=== PATIENT | male | born 1975 | race Caucasian/White ===

== ENCOUNTER → 2020-05-04 06:52 | Outpatient (CLI) | payer BC, SELFPAY ==
[2020-05-04 20:53] LABS: SARS-CoV-2 RNA PCR Positive
== END ==
PROVIDERS: PCP Family Medicine; Visit Provider Family Medicine
DX: U07.1 COVID-19 (principal)
CPT/HCPCS: C9803; U0003; U0005

== ENCOUNTER 2024-05-07 01:54 | Day surgery (SDC) | payer BC, SELFPAY ==
[2024-04-21 10:00] VITALS: BMI 36.3
--- OUTSIDE RECORDS SUMMARY | 2024-05-07 02:00 | XMS_ITS | Data Portability ---
Author Organization [facility] [employer], Main Office Address [address] [place] [address] Care Team Providers Care Network Systems Operator Name Role Phone ESTEPHANIA DEVI Primary Care Provider [phone] Assessment No assessment recorded. Plan of Treatment Reminders Order Date Submit Date Provider Last Modified By Organization Details Last Modified Time Details Appointments Any 2024 03:30P M Selma Ramsay NP Not available Not available Not available Any 2024 03:30P M Estephania Devi APRN Not available Not available Not available Lab hepatitis C virus Ab, serum 2024 025 [facility] (Lab), [address] [place], [address], 04/16/2024 08:08:18 lipid panel, serum 2024 025 [facility] (Lab), [address] [place], [address], 04/16/2024 08:08:17 TSH, serum or plasma 2024 025 [facility] (Lab), [address] [place], [address], 04/16/2024 08:08:17 CBC w/ auto diff 2024 025 [facility] (Lab), [address] [place], [address], 04/16/2024 08:08:17 CMP, serum or plasma 2024 025 [facility] (Lab), [address] [place], [address], 04/16/2024 08:08:18 glycohemo globin, total, blood 2024 025 [facility] (Lab), [address] [place], [address], 04/16/2024 08:08:18 PSA, total, serum or plasma 2023 024 [email or web address] [id number] Not available 07/29/2023 08:18:24 BMP, serum or plasma 2023 024 77 Not available 07/29/2023 08:18:24 hepatic function panel, serum 2023 024 [email or web address] 77 Not available 07/29/2023 08:18:24 lipid panel, serum 2023 024 [email or web address] 77 Not available 07/29/2023 08:18:24 urinalysi s, dipstick 2022 023 [facility] [address], [place], [address], 06/25/2022 16:50:09 urinalysi s, complete [email or web address] [facility] (Lab), [address] [place], [address], 07/11/2022 08:38:31 drug screen, urine 2022 023 [email or web address], [address] [place], [address], 06/25/2022 16:48:00 Referral pulmonolo gist referral 2024 025 Selma Ramsay FLEET MANAGER/DISPATCH-C, [address], [address], [place], [address], 04/07/2024 12:43:20 gastroent erologist referral - Please call patient to schedule an appointme nt. Thank you. [address] [facility], [address], [address], [place], [address], 07/21/2023 08:55:43 Procedures None recorded. Surgeries None recorded. Imaging None recorded. Medication Orders temazepam 30 mg capsule 2024 025 [facility]/Pharmacy #[id number], [address], [place], [address], 04/06/2024 16:37:58 temazepam 30 mg capsule 2023 024 [facility]/Pharmacy #[id number], [address], [place], [address], 06/17/2023 16:58:43 temazepam 30 mg capsule 2022 023 [facility]/Pharmacy #[id number], [address], [place], [address], 06/25/2022 16:26:27 tamsulosi n 0.4 mg capsule 2022 023 [id number], [address], [place], [address], 06/17/2023 16:40:36 ciproflox acin 500 mg tablet [address]/Pharmacy #[id number], [address], [place], [address], 06/17/2023 16:40:17 Patient TargetsNo targets recorded. Patient Instructions Encounter Date Encounter Id Patient Instructions Last Modified By Organization Details Last Modified Time 04/06/2024 [id number] Follow up in 6 months Prescription sent to pharmacy Obtain labs Tests: Referral: Selma Ramsay-Pulmonary DESIGN LEADER Recommend: Tetanus vaccine [email or web address] Not available 04/06/2024 16:35:24 Reason for Referral Molasses Preparer Referral for Screening for malignant neoplasm of colon Please call patient to schedule an appointment. Thank you. Referring Physician: Anna Clayton, Family Medicine, Encounter Date: 06/17/2023 Headmaster/Mistress Referral for O bstructive sleep apnea syndrome Referring Physician: Estephania Devi, Internal Medicine, Encounter Date: 04/06/2024 Results Created Date Observation Date Name Description Value Unit Range Abnormal Flag Note LastModifiedBy Organization Detail LastModifiedTime 10/26/19 22 10/25/2021 TSH thyroid-stim ulating hormone 2.110 uIU/m L 0.465- 4.[address] [facility] (Lab) [address] [place], [address], 10/25/2021 20:53:26 10/26/19 22 10/25/2021 PSA SCREE N PSA medicare screen 0.82 NG/mL 0.00-[address] [facility] (Lab) [address] [place], [address], 10/25/2021 20:53:25 10/26/19 22 10/25/2021 HEMOG LOBIN A1C HA1C 5.4 % 4.0-6. 0 Diabe ariel Scree tony Crite luis: <5.7% Consi stent with absen ce of diabe ariel 5.7-6 .4% Consi stent with incre ased risk for diabe ariel (pred iabet es) >OR=6 .5% Consi stent with diabe ariel REFER ENCE: Diabe ariel Care 2016, 39(Rios ppl.1 ):s13 -s22 Not [address] [facility] (Lab) [address] [place], [address], 10/25/2021 20:49:46 10/26/19 22 10/25/2021 COMPR EHENS LILIANA METAB OLIC PANEL sodium 140 mmol/ L 137-[address] [facility] (Lab) [address] [place], [address], 10/25/2021 20:27:16 10/26/19 22 10/25/2021 COMPR EHENS LILIANA METAB OLIC PANEL potassium 4.7 mmol/ L 3.5-5. [address] [facility] (Lab) [address] [place], [address], 10/25/2021 20:27:16 10/26/19 22 10/25/2021 COMPR EHENS LILIANA METAB OLIC PANEL chloride 104 mmol/ L 98-[address] [facility] (Lab) [address] [place], [address], 10/25/2021 20:27:16 10/26/19 22 10/25/2021 COMPR EHENS LILIANA METAB OLIC PANEL carbon dioxide 27 mmol/ L 22-30 Not Available [facility] (Lab) [address] [place], [address], 10/25/2021 20:27:16 10/26/19 22 10/25/2021 COMPR EHENS LILIANA METAB OLIC PANEL anion gap 13.7 mmol/ L 14-[address] [facility] (Lab) [address] [place], [address], 10/25/2021 20:27:16 10/26/19 22 10/25/2021 COMPR EHENS LILIANA METAB OLIC PANEL glucose 97 mg/dL 70-[address] [facility] (Lab) [address] [place], [address], 10/25/2021 20:27:16 10/26/19 22 10/25/2021 COMPR EHENS LILIANA METAB OLIC PANEL BUN 17 mg/dL 8-[address] [facility] (Lab) [address] [place], [address], 10/25/2021 20:27:16 10/26/19 22 10/25/2021 COMPR EHENS LILIANA METAB OLIC PANEL creatinine 1.08 mg/dL 0.66-[address] [facility] (Lab) [address] [place], [address], 10/25/2021 20:27:16 10/26/19 22 10/25/2021 COMPR EHENS LILIANA METAB OLIC PANEL GFR >60 Refer ence Range : [place] ge GFR Healt hy Adult : >60 mL/mi n/1.7 3 m2 Chron ic Kidne y Disea se: 15-60 mL/mi n/1.7 3 m2 Kidne y Failu re: <15/m L/min /1.73 m2 www.n iddk. nih.g ov The MDRD study equat ion has not been valid ated in child rajesh <18 years of age; pregn ant women ; the elder ly >85 years of age; or in some racia l or ethni c subgr oups, such as Hisid nics. Outsi de the valid ated santiago eters , estim ated GFR is less accur ate, requi ring clini alvina judgm ent on a case- by-ca se basis . Clini alvina inter preta tion for other races and ages must be made by the clini jose. The MDRD study equat ion has not been valid ated for the evalu ation of serum creat inine relat ed to nutri lon l statu s or medic ation usage . For perso ns <18 years of age, a pedia tric GFR calcu lator is avail able on the F websi te: https ://keegan w.kid jordan.o rg/pr vinodess ional s/kdo qi/gf r_cal culat or Not Available [facility] (Lab) [address] [place], [address], 10/25/2021 20:27:16 10/26/19 22 10/25/2021 COMPR EHENS LILIANA METAB OLIC PANEL alkaline phosphatase 70 U/L 38-126 Not Available [facility] (Lab) [address] [place], [address], 10/25/2021 20:27:16 10/26/19 22 10/25/2021 COMPR EHENS LILIANA METAB OLIC PANEL alanine aminotransfe rase 35 U/L 0-50 Not Available [facility] (Lab) [address] [place], [address], 10/25/2021 20:27:16 10/26/19 22 10/25/2021 COMPR EHENS LILIANA METAB OLIC PANEL aspartate aminotransfe rase 34 U/L 15-46 Not Available [facility] (Lab) [address] [place], [address], 10/25/2021 20:27:16 10/26/19 22 10/25/2021 COMPR EHENS LILIANA METAB OLIC PANEL bilirubin, total 0.50 mg/dL 0.20-[address] [facility] (Lab) [address] [place], [address], 10/25/2021 20:27:16 10/26/19 22 10/25/2021 COMPR EHENS LILIANA METAB OLIC PANEL calcium 9.8 mg/dL 8.4-[address] [facility] (Lab) [address] [place], [address], 10/25/2021 20:27:16 10/26/19 22 10/25/2021 COMPR EHENS LILIANA METAB OLIC PANEL total protein 7.4 g/dL 6.3-8. [address] [facility] (Lab) [address] [place], [address], 10/25/2021 20:27:16 10/26/19 22 10/25/2021 COMPR EHENS LILIANA METAB OLIC PANEL albumin 4.6 g/dL 3.4-5. [address] [facility] (Lab) [address] [place], [address], 10/25/2021 20:27:16 10/26/19 22 10/25/2021 COMPR EHENS LILIANA METAB OLIC PANEL globulin 2.8 g/dL 2.6-4. [address] [facility] (Lab) [address] [place], [address], 10/25/2021 20:27:16 10/26/19 22 10/25/2021 COMPR EHENS LILIANA METAB OLIC PANEL A/G ratio 1.6 ratio 1.0-2. [address] [facility] (Lab) [address] [place], [address], 10/25/2021 20:27:16 10/26/19 22 10/25/2021 LIPID PANEL cholesterol 192 mg/dL 140-19 9 NIH NATALIA NSUS RECOM MENDA TION FOR TAWANDA STERO L: ADULT CHILD LOW RISK: <200 <170 BORDE RLINE : <200- 239 ----- HIGH RISK: >240 >[address] [facility] (Lab) [address] [place], [address], 10/25/2021 20:27:09 10/26/19 22 10/25/2021 LIPID PANEL triglyceride s 154 mg/dL 0-150 high NIH NATALIA NSUS REPOR T RECOM MENDA TION FOR TRIGL YCERI ALEXUS: ADULT CHILD LOW RISK: <150 ----- BODER LINE: 150-1 99 ----- HIGH RISK: >200 ----- Not Available [facility] (Lab) [address] [place], [address], 10/25/2021 20:27:09 10/26/19 22 10/25/2021 LIPID PANEL HDL cholesterol 48 mg/dL 40- Not Available [facility] (Lab) [address] [place], [address], 10/25/2021 20:27:09 10/26/19 22 10/25/2021 LIPID PANEL LDL cholesterol, calculated 113 mg/dL 0-130 NIH NATALIA NSUS REPOR T RECOM MENDA TIONS FOR LDL: ADULT CHILD LOW RISK <130 <110 (OPTI MAL LDL) <100 ----- BORDE RLINE : 130-1 59 ----- HIGH RISK: >160 >130 A TRIGL YCERI DE RESUL T >400 INVAL IDATE S THE CALCU LATIO N FOR LDL FRACT IONAT ION - THE LDL RESUL T WILL NOT BE REPOR KELLIE. Not Available [facility] (Lab) [address] [place], [address], 10/25/2021 20:27:09 10/26/19 22 10/25/2021 URINA LYSIS COMPL ETE, IRIS color light- yellow Not Available [facility] (Lab) [address] [place], [address], 10/25/2021 19:47:31 10/26/19 22 10/25/2021 URINA LYSIS COMPL ETE, IRIS appear clear Not Available [facility] (Lab) [address] [place], [address], 10/25/2021 19:47:31 10/26/19 22 10/25/2021 URINA LYSIS COMPL ETE, IRIS specific gravity 1.023 1.001- 1.[address] [facility] (Lab) [address] [place], [address], 10/25/2021 19:47:31 10/26/19 22 10/25/2021 URINA LYSIS COMPL ETE, IRIS pH 6.0 pH_un its 5.0-9. [address] [facility] (Lab) [address] [place], [address], 10/25/2021 19:47:31 10/26/19 22 10/25/2021 URINA LYSIS COMPL ETE, IRIS leukocytes negati ve jessica/u L negati ve- Not Available [facility] (Lab) [address] [place], [address], 10/25/2021 19:47:31 10/26/19 22 10/25/2021 URINA LYSIS COMPL ETE, IRIS nitrite negati ve negati ve- Not Available [facility] (Lab) [address] [place], [address], 10/25/2021 19:47:31 10/26/19 22 10/25/2021 URINA LYSIS COMPL ETE, IRIS protein negati ve mg/dL negati ve- Not Available [facility] (Lab) [address] [place], [address], 10/25/2021 19:47:31 10/26/19 22 10/25/2021 URINA LYSIS COMPL ETE, IRIS glucose normal mg/dL normal - Not Available [facility] (Lab) [address] [place], [address], 10/25/2021 19:47:31 10/26/19 22 10/25/2021 URINA LYSIS COMPL ETE, IRIS ketones negati ve mg/dL negati ve- Not Available [facility] (Lab) [address] [place], [address], 10/25/2021 19:47:31 10/26/19 22 10/25/2021 URINA LYSIS COMPL ETE, IRIS urobilinogen normal mg/dL normal - Not Available [facility] (Lab) [address] [place], [address], 10/25/2021 19:47:31 10/26/19 22 10/25/2021 URINA LYSIS COMPL ETE, IRIS bilirubin negati ve mg/dL negati ve- Not Available [facility] (Lab) [address] [place], [address], 10/25/2021 19:47:31 10/26/19 22 10/25/2021 URINA LYSIS COMPL ETE, IRIS blood negati ve mg/dL negati ve- Not Available [facility] (Lab) [address] [place], [address], 10/25/2021 19:47:31 10/26/19 22 10/25/2021 URINA LYSIS COMPL ETE, IRIS white blood cells 0-8 /i??h pfi?? 0-[address] [facility] (Lab) [address] [place], [address], 10/25/2021 19:47:31 10/26/19 22 10/25/2021 URINA LYSIS COMPL ETE, IRIS red blood cells 0-4 /i??h pfi?? 0-[address] [facility] (Lab) [address] [place], [address], 10/25/2021 19:47:31 10/26/19 22 10/25/2021 URINA LYSIS COMPL ETE, IRIS bacteria occasi onal abnormal Not Available [facility] (Lab) [address] [place], [address], 10/25/2021 19:47:31 10/26/19 22 10/25/2021 URINA LYSIS COMPL ETE, IRIS mucous occasi onal /i??l pfi?? abnormal Not Available [facility] (Lab) [address] [place], [address], 10/25/2021 19:47:31 10/26/19 22 10/25/2021 URINA LYSIS COMPL ETE, IRIS squamous epithelial none /i??l pfi?? abnormal Not Available [facility] (Lab) [address] [place], [address], 10/25/2021 19:47:31 10/26/19 22 10/25/2021 CBC W/O DIFFE RENTI AL white blood cells 8.4 x10'3 /uL 4.2-[address] [facility] (Lab) [address] [place], [address], 10/25/2021 19:41:47 10/26/19 22 10/25/2021 CBC W/O DIFFE RENTI AL red blood cells 5.40 x10'6 /uL 4.10-[address] [facility] (Lab) [address] [place], [address], 10/25/2021 19:41:47 10/26/19 22 10/25/2021 CBC W/O DIFFE RENTI AL hemoglobin 15.8 g/dL 13.2-[address] [facility] (Lab) [address] [place], [address], 10/25/2021 19:41:47 10/26/19 22 10/25/2021 CBC W/O DIFFE RENTI AL hematocrit 49.1 % 39.3-[address] [facility] (Lab) [address] [place], [address], 10/25/2021 19:41:47 10/26/19 22 10/25/2021 CBC W/O DIFFE RENTI AL mean red cell volume 90.9 fL 80.0-[address] [facility] (Lab) [address] [place], [address], 10/25/2021 19:41:47 10/26/19 22 10/25/2021 CBC W/O DIFFE RENTI AL mean red cell hemoglobin 29.3 pg 27.0-[address] [facility] (Lab) [address] [place], [address], 10/25/2021 19:41:47 10/26/19 22 10/25/2021 CBC W/O DIFFE RENTI AL mean RBC HGB concentratio n 32.2 g/dL 31.0-[address] [facility] (Lab) [address] [place], [address], 10/25/2021 19:41:47 08/04/20 22 10/25/2021 CBC W/O DIFFE RENTI AL red cell distribution width 12.7 % 11.8-[address] [facility] (Lab) [address] [place], [address], 10/25/2021 19:41:47 10/26/19 22 10/25/2021 CBC W/O DIFFE RENTI AL platelets 220 x10'3 /uL 150-40 0 Not Available [facility] (Lab) [address] [place], [address], 10/25/2021 19:41:47 10/26/19 22 10/25/2021 CBC W/O DIFFE RENTI AL mean platelet volume 10.1 fL 9.0-[address] [facility] (Lab) [address] [place], [address], 10/25/2021 19:41:47 06/26/19 23 06/25/2022 URINA LYSIS COMPL ETE, IRIS color LIGHT- YELLOW Not Available [facility] (Lab) [address] [place], [address], 06/25/2022 21:05:10 06/26/19 23 06/25/2022 URINA LYSIS COMPL ETE, IRIS appear CLEAR Not Available [facility] (Lab) [address] [place], [address], 06/25/2022 21:05:10 06/26/19 23 06/25/2022 URINA LYSIS COMPL ETE, IRIS specific gravity 1.030 1.001- 1.[address] [facility] (Lab) [address] [place], [address], 06/25/2022 21:05:10 06/26/19 23 06/25/2022 URINA LYSIS COMPL ETE, IRIS pH 6.0 pH_un its 5.0-9. [address] [facility] (Lab) [address] [place], [address], 06/25/2022 21:05:10 06/26/19 23 06/25/2022 URINA LYSIS COMPL ETE, IRIS leukocytes NEGATI VE jessica/u L negati ve- Not Available [facility] (Lab) [address] [place], [address], 06/25/2022 21:05:10 06/26/19 23 06/25/2022 URINA LYSIS COMPL ETE, IRIS nitrite NEGATI VE negati ve- Not Available [facility] (Lab) [address] [place], [address], 06/25/2022 21:05:10 06/26/19 23 06/25/2022 URINA LYSIS COMPL ETE, IRIS protein NEGATI VE mg/dL negati ve- Not Available [facility] (Lab) [address] [place], [address], 06/25/2022 21:05:10 06/26/19 23 06/25/2022 URINA LYSIS COMPL ETE, IRIS glucose NORMAL mg/dL normal - Not Available [facility] (Lab) [address] [place], [address], 06/25/2022 21:05:10 06/26/19 23 06/25/2022 URINA LYSIS COMPL ETE, IRIS ketones NEGATI VE mg/dL negati ve- Not Available [facility] (Lab) [address] [place], [address], 06/25/2022 21:05:10 06/26/19 23 06/25/2022 URINA LYSIS COMPL ETE, IRIS urobilinogen NORMAL mg/dL normal - Not Available [facility] (Lab) [address] [place], [address], 06/25/2022 21:05:10 06/26/19 23 06/25/2022 URINA LYSIS COMPL ETE, IRIS bilirubin NEGATI VE mg/dL negati ve- Not Available [facility] (Lab) [address] [place], [address], 06/25/2022 21:05:10 06/26/19 23 06/25/2022 URINA LYSIS COMPL ETE, IRIS blood NEGATI VE mg/dL negati ve- Not Available [facility] (Lab) [address] [place], [address], 06/25/2022 21:05:10 06/26/19 23 06/25/2022 URINA LYSIS COMPL ETE, IRIS white blood cells 0-8 /i??h pfi?? 0-[address] [facility] (Lab) [address] [place], [address], 06/25/2022 21:05:10 06/26/19 23 06/25/2022 URINA LYSIS COMPL ETE, IRIS red blood cells 0-4 /i??h pfi?? 0-[address] [facility] (Lab) [address] [place], [address], 06/25/2022 21:05:10 06/26/19 23 06/25/2022 URINA LYSIS COMPL ETE, IRIS bacteria OCCASI ONAL abnormal Not Available [facility] (Lab) [address] [place], [address], 06/25/2022 21:05:10 06/26/19 23 06/25/2022 URINA LYSIS COMPL ETE, IRIS mucous OCCASI ONAL /i??l pfi?? abnormal Not Available [facility] (Lab) [address] [place], [address], 06/25/2022 21:05:10 06/26/19 23 06/25/2022 URINA LYSIS COMPL ETE, IRIS squamous epithelial NONE /i??l pfi?? abnormal Not Available [facility]Lab) [address] [place], [address], 06/25/2022 21:05:10 06/26/19 23 06/25/2022 urina lysis , dipst ick Leukocytes (reference range: negative jessica/ l) Negati ve Not Available [address], [place], [address], 06/25/2022 16:16:43 06/26/19 23 06/25/2022 urina lysis , dipst ick Nitrite (reference rage: negative mg/dl) negati ve Not Available [address], [place], [address], 06/25/2022 16:16:43 06/26/19 23 06/25/2022 urina lysis , dipst ick Urobilinogen (reference range: 0.2-1 mg/dl) 0.2 Not Available [address], [place], [address], 06/25/2022 16:16:43 06/26/19 23 06/25/2022 urina lysis , dipst ick Protein (reference range: negative mg/dl) Negati ve Not Available [address], [place], [address], 06/25/2022 16:16:43 06/26/19 23 06/25/2022 urina lysis , dipst ick pH (reference range: 5-7) 6.0 Not Available [address], [place], [address], 06/25/2022 16:16:43 06/26/19 23 06/25/2022 urina lysis , dipst ick Blood (reference range: negative Ryan/ l) Negati ve Not Available [address], [place], [address], 06/25/2022 16:16:43 06/26/19 23 06/25/2022 urina lysis , dipst ick Specific [place] (reference range: 1.005-1.030) 1.030 Not Available [address], [place], [address], 06/25/2022 16:16:43 06/26/19 23 06/25/2022 urina lysis , dipst ick Ketone (reference range: negative mg/dl) Negati ve Not Available [address], [place], [address], 06/25/2022 16:16:43 06/26/19 23 06/25/2022 urina lysis , dipst ick Bilirubin (reference range: negative mg/dl) Negati ve Not Available [address], [place], [address], 06/25/2022 16:16:43 06/26/19 23 06/25/2022 urina lysis , dipst ick Glucose (reference range: negative mg/dl) Negati ve Not Available [address], [place], [address], 06/25/2022 16:16:43 06/26/19 23 06/25/2022 urina lysis , dipst ick Appearance Clear Not Available [address], [place], [address], 06/25/2022 16:16:43 06/26/19 23 06/25/2022 urina lysis , dipst ick Color Yellow Not Available [address], [place], [address], 06/25/2022 16:16:43 Result Notes None recorded. 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 5 15:54:28 Equinus contracture of the ankle 899908158 Active 2019 Not Available [facility] 3 08:46:40 Equinus contracture of the ankle 140994531 Active 2019 Estephania Devi APRN [address], [address], [place], [address] , [employer] 5 15:54:31 Abdominal pain 41901482 Active Not Available [facility] 3 08:46:40 Situational panic attack 025053450 Active Estephania Devi APRN [address], [address], [place], [address] , [employer] 5 15:55:03 Chest pain 56368579 Active Not Available [facility] 3 08:46:40 Tinnitus 23312172 Active Not Available [facility] 3 08:46:40 Obstructive sleep apnea syndrome 50592350 Active 2018 Estephania Devi APRN [address], [address], [place], [address] , [employer] 5 15:54:43 Neck pain 38643065 Active Not Available [facility] 3 08:46:41 Skin lesion 80322842 Active Not Available [facility] 3 08:46:41 Insomnia 878542858 Active 2022 Estephania Devi APRN [address], [address], [place], [address] , [employer] [facility] [employer] 5 15:54:37 Acute sinusitis 46081863 Active 2022 Anna Clayton MD [address] [facility], [place] [address], [place], [address] , [employer] [facility] [employer] 3 15:45:55 Left flank pain 449456974 Active 2022 ESHA Castro [address] [facility], [facility] [address], [place], [address] , [employer] [facility] [employer] 3 16:15:08 Painless rectal bleeding 737670499 Active 2022 Anna Clayton MD [address] [facility], [place] [address], [place], [address] , [employer] [facility] [employer] 3 12:58:43 Hyperlipidemi a 85861290 Active 2023 Estephania Devi APRN [address] [facility], [place] [address], [place], [address] , [employer] [facility] [employer] 5 15:54:33 Obesity 659808675 Active 2024 Estephania Devi APRN [address] [facility], [place] [address], [place], [address] , [employer] [facility] [employer] 5 11:32:35 Problem Notes None recorded. Medical Equipment None Reported. Allergies No known drug allergies Medications Name Sig Start Date Stop Date Status Note LastModified by Organization Details LastModified Time cyclobenz aprine 10 mg tablet Take 1 tablet 3 times a day by oral route as needed. 07/04 completed Not Available Not Available Not Available ivermecti n 3 mg tablet Take 6 tablets every day by oral route for 1 day. 11/26 completed Not Available Not Available Not Available prednison e 10 mg tablet Take 2 tabs by mouth x14 days, then 1 tab daily x 7 days active Not Available Not Available No t Available sildenafi l 50 mg tablet 1 po qday prn 10/25 completed Not Available Not Available Not Available Claritin 10 mg tablet Take 1 tablet every day by oral route for 30 days. 07/11 completed Not Available Not Available Not Available meloxicam 15 mg tablet TAKE 1 TABLET BY MOUTH EVERY DAY WITH MEALS 10/25 completed Not Available Not Available Not Available clonazepa m 0.5 mg tablet TAKE 1/2 TO 1 TABLET BY MOUTH EVERY DAY NEEDED 07/04 completed Not Available Not Available Not Available sertralin e 100 mg tablet Take 1 tablet every day by oral route as directed . 2012 active Not Available Not Available Not Avai lable Zithromax Z-Reuben 250 mg tablet TAKE 2 TABLETS (500 MG) BY ORAL ROUTE ONCE DAILY FOR 1 DAY THEN 1 TABLET (250 MG) BY ORAL ROUTE ONCE DAILY FOR 4 DAYS 06/16 completed Not Available Not Available Not Available permethri n 5 % topical cream APPLY (THOROUG HLY MASSAGE INTO SKIN FROM HEAD TO SOLES OF FEET) BY TOPICAL ROUTE ONCE LEAVE ON FOR 8-14 HR, THEN REMOVE BY THOROUGH WASHING active Not Available Not Available No t Available ciproflox acin 500 mg tablet TAKE 1 TABLET BY MOUTH EVERY 12 HOURS FOR 10 DAYS 06/16 completed Not Available Not Available Not Available sulfameth oxazole 800 mg-trimet hoprim 160 mg tablet TAKE 1 TABLET BY MOUTH EVERY 12 HOURS 06/16 completed Not Available Not Available Not Available sildenafi l 25 mg tablet Take 1 tablet every day by oral route as needed for 30 days. 10/25 completed Not Available Not Available Not Available sildenafi l 100 mg tablet 1/2 to 1 tab po x 1 30 to 60 min prior to intercou rse. do not exceed 1 tab in 24 hours 07/11 completed Not Available Not Available Not Available temazepam 7.5 mg capsule TAKE 4 CAPSULES BY MOUTH AT BEDTIME 10/25 completed Not Available Not Available Not Available Kenalog 40 mg/mL suspensio n for injection Take 40 mg by injectio n route. 11/26 completed Not Available Not Available Not Available meloxicam 7.5 mg tablet 07/11 completed Not Available Not Available Not Available amoxicill in 875 mg tablet TAKE 1 TABLET BY MOUTH EVERY 12 HOURS FOR 7 DAYS 06/16 completed Not Available Not Available Not Available tamsulosi n 0.4 mg capsule TAKE 1 CAPSULE BY MOUTH EVERY DAY FOR 10 DAYS 06/16 completed Not Available Not Available Not Available temazepam 30 mg capsule TAKE 1 CAPSULE BY MOUTH EVERYDAY AT BEDTIME active Not Available Not Available No t Available hydrocort isone 1 % topical cream APPLY A THIN LAYER TO THE AFFECTED AREA(S) BY TOPICAL ROUTE 2 TIMES PER DAY 11/26 completed Not Available Not Available Not Available gemfibroz il 600 mg tablet TAKE 1 TABLET BY MOUTH TWICE A DAY DIRECTED active Not Available Not Available No t Available triamcino lone acetonide 0.1 % topical ointment APPLY A THIN LAYER TO THE AFFECTED AREA(S) BY TOPICAL ROUTE 2 TIMES PER DAY for 7-10 days prn active Not Available Not Available No t Available nystatin 100,000 unit/gram topical cream APPLY TO THE AFFECTED AREA(S) BY TOPICAL ROUTE 2 TIMES PER DAY x 7-10 days prn active Not Available Not Available No t Available diphenhyd ramine 25 mg tablet Take 2 tablets every 4 hours by oral route as needed. 07/11 completed Not Available Not Available Not Available diclofena c sodium 75 mg tablet,de layed release Take 1 tablet twice a day by oral route. 07/04 completed Not Available Not Available Not Available codeine 10 mg-guaife nesin 100 mg/5 mL oral liquid Take 10 mL every 6 hours by oral route as needed. active Not Available Not Available No t Available methylpre dnisolone 4 mg tablets in a dose pack Take per package instruct ions 11/26 completed Not Available Not Available Not Available albuterol sulfate HFA 90 mcg/actua tion aerosol inhaler Inhale 2 puffs every 4 hours by inhalati on route. active Not Available Not Available No t Available doxycycli ne hyclate 100 mg tablet TAKE 1 TABLET BY MOUTH TWICE A DAY FOR TWO WEEKS active Not Available Not Available No t Available Ambien 10 mg tablet Take 1 tablet every day by oral route. 01/19 completed Not Available Not Available Not Available naproxen 500 mg tablet active Not Available Not Available Not Available clindamyc in phosphate 1 % topical solution APPLY TO SCALP/FA CE DAILY active Not Available Not Available No t Available melatonin 1 mg tablet Take 1 tablet as needed by oral route at bedtime. 06/16 completed Not Available Not Available Not Available Cialis 20 mg tablet 1 po x 1 30 minutes prior to intercou rse 07/11 completed Not Available Not Available Not Available tadalafil 20 mg tablet (pulmonar y hypertens ion) take just before sexual activity but not more than once per day 10/25 completed Not Available Not Available Not Available Mounjaro 2.5 mg/0.5 mL subcutane ous pen injector Inject 0.5 mL every week by subcutan eous route as directed , for weight loss. 04/14 completed Not covered for DX of weight loss Not Available Not Available Not Available Zepbound 2.5 mg/0.5 mL subcutane ous pen injector Inject by subcutan eous route for 28 days. active Not Available Not Available No t Available Vitals Date Recorded Body mass index (BMI) Body height Oxygen saturation Oxygen saturation in Arterial blood by Pulse oximetry Heart rate Body temperature Body weight Systolic blood pressure Diastolic blood pressure Provider Name and Address Organization Details Last Updated DateTime 3 36.6 kg/m2 177.8 cm 99 % 99 % 79 /min 98.5 [degF] 300432. 05 g 130 mm[Hg] 90 mm[Hg] Not Available [facility] 08:45:37 Date Recorded Body height Body mass index (BMI) Body weight Body temperature Heart rate Oxygen saturation Oxygen saturation in Arterial blood by Pulse oximetry Systolic blood pressure Diastolic blood pressure Provider Name and Address Organization Details Last Updated DateTime 3 177.8 cm 37.2 kg/m2 818390. 42 g 97.1 [degF] 63 /min 98 % 98 % 128 mm[Hg] 82 mm[Hg] Muna Mccloud RN [facility] [employer] 3 16:07:36 Date Recorded Body height Body mass index (BMI) Body weight Body temperature Heart rate Oxygen saturation Oxygen saturation in Arterial blood by Pulse oximetry Provider Name and Address Organization Details Last Updated DateTime 4 177.8 cm 36.7 kg/m2 500134. 65 g 97.5 [degF] 80 /min 97 % 97 % Uzair Whitmore RN [facility] [employer] 4 16:39:13 Date Recorded Systolic blood pressure Diastolic blood pressure Provider Name and Address Organization Details Last Updated DateTime 06/17/2023 138 mm[Hg] 88 mm[Hg] Anna Clayton MD [address], [facility] [address], [place], [address], [place] [employer] [facility] [employer] 06/17/2023 16:56:20 Date Recorded Body height Body mass index (BMI) Body weight Body temperature Heart rate Oxygen saturation Oxygen saturation in Arterial blood by Pulse oximetry Pain severity - 0-10 verbal numeric rating [Score] - Reported Systolic blood pressure Diastolic blood pressure Provider Name and Address Organization Details Last Updated DateTime 177.8 cm 37.7 kg/m2 162610. 79 g 98.5 [degF] 81 /min 98 % 98 % 0 128 mm[Hg] 90 mm[Hg] Margaret Henry MA [employer] 16:06:19 Social History Question Answer Notes LastModified by Organizat ion Details LastModified Time Tobacco Smoking Status Never Smoker Muna Mccloud RN null, [place] [employer] [facility] [employer] 06/25/2022 16:08:31 What Is Your Level Of Alcohol Consumption? None Information not available 06/25/2022 What Is Your Level Of Caffeine Consumption? Occasional Information not available 04/06/2024 In The 14 Days Before Symptom Onset, Have You Had Close Contact With A Laboratory-confir med COVID-19 While That Case Was Ill? No [id number] Information not available 05/22/2022 In The 14 Days Before Symptom Onset, Have You Had Close Contact With A Person Who Is Under Investigation For COVID-19 While That Person Was Ill? No [id number] Information not available 05/22/2022 Are You Currently Employed? Yes Information not available 04/06/2024 What Type Of Diet Are You Following? REGULAR Information not available 06/25/2022 Have There Been Any Changes To Your Family Or Social Situation? No Information no t available 04/06/2024 Do You Use Insect Repellent Routinely? No Information not available 04/06/2024 Where Do You Live? SingleLevelHouse Information not available 04/06/2024 What Was The Date Of Your Most Recent Tobacco Screening? 04/06/2024 Information not available 04/06/2024 How Many Children Do You Have? 3 Information not available 04/06/2024 Do You Have Any Pets? Yes Information not available 04/06/2024 What Is Your Relationship Status? Information not available 04/06/2024 Do You Use Your Seat Belt Or Car Seat Routinely? Yes Information not available 04/06/2024 Do You Have Smoke And Carbon Monoxide Detectors In Your Home? Yes Information not available 04/06/2024 Are You Passively Exposed To Smoke? No Information no t available 04/06/2024 Are There Any Smokers In Your House? No Information not available 04/06/2024 Do You Feel Stressed (tense, Restless, Nervous, Or Anxious, Or Unable To Sleep At Night)? [id number] Information not available 04/06/2024 Do You Use Any Illicit Or Recreational Drugs? No Information not available 06/25/2022 Do You Use Sunscreen Routinely? No Information not available 04/06/2024 Have You Recently Traveled Abroad? No [id number] Information not available 05/22/2022 Do You Have Any Dietary Restrictions? No Information not available 06/25/2022 Do You Or Have You Ever Used Any Other Forms Of Tobacco Or Nicotine? No Information not available 04/06/2024 Sex: Unknown Functional Status Question Answer Note LastModified by Organization D etails LastModified Time What is your exercise level? None Information not available 06/25/2022 Mental Status None recorded. Family History Relationship Description Onset Age of this Age Resolved Age Notes LastModified by Organization Details LastModified Time Father No current problems or disability [id number] Not available 05/22/2022 08:43:06 Mother No current problems or disability [id number] Not available 05/22/2022 08:43:06 Medical History No medical history recorded. Past Encounters Encounter ID Performer Location Encounter Start Date Encounter Closed Date Diagnosis/Indication Diagnosis SNOMED-CT Code Diagnosis ICD10 Code Diagnosis Note [id number] [facility] General Surgery [address] [place] [address] 05/10/2021 00:00:00 05/10/2021 15:08:05 [id number] [facility] General Surgery [address] [place] [address] 06/14/2021 00:00:00 06/14/2021 13:49:26 [id number] [facility] Primary Care [facility] [place] [address] [place] [address] 10/25/2021 00:00:00 10/25/2021 17:28:19 [id number] ESHA Castro [facility] Primary Care [facility] [place] [address] [place] [address] 06/25/2022 16:01:12 06/25/2022 16:30:40 Left flank pain 975950035 R10.9 New problemSus pect L nephrolith iasis. Pt tolerating pain with ibuprofen. Will check UA and send for micro. Will start on flomax and abx in the meantime. Reviewed red flags and when to go to ER. Pt verbalized understand ing & agreement with POC. Medication monitoring 39 1491596 Z51.81 Stable with current dose of temazepamP t denies any lending, selling, or borrowing of medication s. Continue to use sparingly. Reviewed controlled substance agreement requiremen ts. Refill given.[place] PDMP checked todayUDS (10/25/21)-a ppropriate .Due for repeat UDS today Insomnia 940967635 G47.0 0 Chronic, stable with temazepam Sleep hygiene (set bedtime, routine for bed, dark room, no electronic s). Discussed that it will likely take several weeks to fully establish routine and note change in sleep patterns. Advised good sleep habits and patterns to include:-- Setting a goal for at least 7 to 8 hours of sleep time per day.--Usin g the bed mainly for sleep and to go to bed only when tired. If unable to fall asleep after 30 minutes, patient should get out of bed but should not engage in any activity that requires sustained mental alertness. --Maintain ing a regular bedtime and wake-up time even on weekends or days off of work.--Hipolito iding excessive naps during the daytime. If a nap is necessary, limit it to no more than 30minutes. --Minimizi ng environmen demar noise, bright lights, and extremes in bedroom temperatur e.--Avoidi ng alcohol, caffeinate d beverages, and nicotine products for at least 6 hours prior to bedtime.-- Avoiding strenuous exercise and large meals for at least 4 hours prior to bedtime. Continue Temazepam 30mg [facility] [id number] Anna Clayton MD [facility] Primary Care [facility] [place] [address] [facility] [address] [place] [address] 06/17/2023 16:33:03 06/17/2023 16:58:02 Insomnia 669219359 G47.00 stablerefi ll givenf/u in 6 months or sooner if needed Hyperlipidemia 63985095 E78.5 Z79.899 Diabetes m ellitus screening 620558164 Z13.1 Screening for malignant neoplasm of prostate 276807344 Z12.5 Screening for malignant neoplasm of colon 478610682 Z12.11 [id number] SHERYL Ovalles [facility] Primary Care [facility] [place] [address] [facility] [address] [place] [address] 09/15/2023 16:13:31 09/15/2023 17:11:37 [id number] Estephania Devi APRN [facility] Internal Med [facility] [address] [place] [address] 04/06/2024 15:43:31 04/06/2024 16:42:47 Hyperlipidemia 56601913 E78.5 Z79.899 Hepatitis C screening 41 7267650 Z11.59 Obstructiv e sleep apnea syndrome 69762355 G47.33 Insomnia 686157855 G47.0 0 Health Concerns Section Related Observation LastModified by Organization Detai ls LastModified Time None Recorded Concern Status LastModified by Organization Details LastModified Time None Recorded Advance Directives Directive None Recorded Payers Encounter Date Sequence Insurance Name Policy Number Policy Daniel Covered Member ID Daniel Member ID Guarantor Name 06/25/2022 1 [place] [id number] Jared C Abran [id number] Jared C Abran 06/17/2023 1 [place] [id number] Jared C Abran [id number] Jared C Abran 09/15/2023 1 [place] [id number] Jared C Abran [id number] Jared C Abran 04/06/2024 1 [place] [id number] Jared C Abran [id number] Jared C Abran Notes Date Note Type Note Provider Name and Address Organization Details Recorded Time 06/25/2022 text/html 1. Pt in office for medication f/u appt. Pt takes temazepam for sleep. Denies any lending, selling, or borrowing of medication2. Pt states he feels like he might be getting a kidney stone. States he has had stones in the past. 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 Pt states pain started about 3 days ago. Managing pain with otc ibuprofen. Denies any change to urinary function or blood in urine at this time. ESHA Castro [address], [place] [address], [place], [address], [employer] 06/25/2022 19:51:59 06/17/2023 text/html Here for medication f/u. He is taking temazepam at bedtime as prescribed, no selling/lending/s haring, no heavy etoh or illegal drug use. Anna Clayton MD [address], [address], [place], [address], [employer] 06/19/2023 22:31:45 04/06/2024 text/html Jared presents today to establish care. Estephania Devi APRN [address], [address], [place], [address], [employer] 04/06/2024 16:38:01
--- OUTSIDE RECORDS SUMMARY | 2024-05-07 02:00 | XMS_ITS | Clinical Summary ---
Author Organization [facility] Address [facility] [place] [address] Care Team Providers Care Radio Station Manager Name Role Phone Unavailable Primary Care Provider Unavailabl e Social History Tobacco Use Types Packs/Day Years Used Date Smoking Tobacco: Never Assessed Sex and Gender Information Value Date Recorded Sex Assigned at Not on file Legal Sex Male 8:12 PM CDT Gender Identity Not on file Sexual Orientation Not on file Plan of Treatment Health Maintenance Due Date Last Done Comments Colorectal Cancer Screening Colonoscopy (10 Years) 1976 Annual Physical 10/16/1979 Hepatitis C 1994 DTaP, Tdap and Td Vaccines ( 1 - Tdap) 10/16/1995 Hepatitis B Vaccines (1 of 3 - 19+ 3-dose series) 10/16/1995 COVID-19 Vaccine (2023-2 5 season) 2023 Influenza Adult (#1) 2023 Meningococcal B Vaccine Aged Out No l onger eligible based on patient's age to complete this topic Meningococcal Vaccine Aged Out No tressa rafi eligible based on patient's age to complete this topic Pneumococcal Vaccine: Pediat rics (0 to 5 Years) and At-Risk Patients (6 to 64 Years) Aged Out No longer eligible b ased on patient's age to complete this topic RSV Immunizations Under 20 Months Aged Out No longer eligible based on patient's age to complete this topic
--- OUTSIDE RECORDS SUMMARY | 2024-05-07 02:00 | XMS_ITS | Continuity of Care Document ---
Author Organization [facility] Address [address] [place] [address] [address] [place] [address] Phone Care Team Providers Care Affiliate Marketing Specialist Name Role Phone Bridget Oscar Unavailable Unavailable Advance Directives Directive Yes / No Effective Date File Name No Information Encounters Encounter Description Practice Location Reason(s) For Visit Diagnoses Date Provider Providers Copied on Encounter [facility], [id number] [place] [address] [address], [place], [place], [id number], [place] tel:[phone] [facility] No Information [address] [facility] , [address], [place], [address], [place]. tel:[phone] Family History Family Member Type Diagnosis Age At Onset No Information Payers Payer name Insurance type Covered democrat ID Authoriza tion(s) No Information Social History Type Description Quantity Date Captured Comments Sex Male Smoking Status No Information Chief Complaint And Reason For Visit No Information Reason For Referral Reason For Referral No Information History Of Present Illness Encounter Date Complaint History Of Prese nt Illness No Information Functional Status Date Functional Assessmen t No Information Instructions Date Instruction Additional Infor mation No Information Assessments Type Assessment Date No Information Patient Care Teams Name Effective Dates (start - stop) Status Members No Information
[2024-05-07 07:10] VITALS: BP 147/84; PULSE 69; RESP 18; TEMP 36.3; O2SAT 100; BMI 35.2
[2024-05-07] MEDS: LACTATED RINGERS 1,000 ML 150 ML IV CONT (07:32)
--- NOTE | 2024-05-07 07:53 | WPDANESEPPF ---
Anes - Initial Pre Proc Eval Procedure: Operation Date: 05/07/24 08:30 Proposed Procedures p Screening Colonoscopy - Adebayo Mcdowell MD Date/Time: 05/07/24 07:53 Surgeon: Adebayo Mcdowell MD Pre Op Diagnosis: screening colon Patient Data Age: 48 Gender: M Height: 1.78 m Weight: 111.5 kg Last Vital Signs Temp 36.3 C L 05/07/24 07:10 Pulse 69 05/07/24 07:10 Resp 18 05/07/24 07:10 BP 147/84 H 05/07/24 07:10 Pulse Ox 100 05/07/24 07:10 O2 Del Method Room Air 05/07/24 07:10 Allergies Allergy/AdvReac Type Severity Reaction Status Date / Time No Known Allergies Allergy Verified 05/07/24 07:18 Home Medications ?Medication ?Instructions ?Recorded ?Confirmed ?Type gemfibrozil 600 mg tablet 600 mg PO DAILY 04/21/24 05/07/24 History temazepam 30 mg capsule 30 mg PO .qnight 04/21/24 05/07/24 History tirzepatide (weight loss) 2.5 2.5 mg subcut WEEKLY weight loss 04/21/24 05/07/24 History mg/0.5 mL subcutaneous pen injector (Zepbound) Patient hx anesthesia problems: none Family hx anesthesia problems: none Results Review: All pre-operative results and documents have been reviewed as part of the pre-operative evaluation. [facility] Past Medical History Medical History (Updated 05/07/24 @ 07:54 by Terrence Silva MD) EVER on CPAP Obesity Social History Social History Living arrangements: with family Spiritual care concerns: No Anes - Eval Final PreProcedure Day of Procedure 05/07/24 07:53 Patient weight: obese Heart: regular rate and rhythm Lungs: clear to auscultation Airway: Mallampati scale class II Neurological: alert and oriented Last oral intake: >/= 8 hours ASA classification: III Emergent: no Anesthetic plan: proceed Anesthesia type and monitoring: general GIVS and standard monitoring Results Review: All pre-operative results and documents have been reviewed as part of the pre-operative evaluation. Informed Consent: The patient's anesthetic plan and its attendant risks and benefits were discussed with the patient/family/POA. Questions were solicited and answers provided to the satisfaction of the patient/family/POA.
--- NOTE | 2024-05-07 08:06 | PM.HPGS ---
History of Present Illness History of Present Illness Consent: Risks, benefits, and alternatives have been discussed and questions answered. Patient agrees to proceed with procedure. Chief complaint: screening colon Narrative: Jared Osullivan is a 48 year old male here for screening colonoscopy, had one 15 years ago Review of Systems Review of Systems: All systems reviewed & are unremarkable except as noted in HPI and below PMFSH Past Medical History Medical History (Updated 05/07/24 @ 08:07 by Adebayo Mcdowell MD) Colon cancer screening EVER on CPAP Obesity Social History Social History Living arrangements: with family Spiritual care concerns: No Meds Home Medications and Allergies Home Medications ?Medication ?Instructions ?Recorded ?Confirmed ?Type gemfibrozil 600 mg tablet 600 mg PO DAILY 04/21/24 05/07/24 History temazepam 30 mg capsule 30 mg PO .qnight 04/21/24 05/07/24 History tirzepatide (weight loss) 2.5 2.5 mg subcut WEEKLY weight loss 04/21/24 05/07/24 History mg/0.5 mL subcutaneous pen injector (Zepbound) Allergies Allergy/AdvReac Type Severity Reaction Status Date / Time No Known Allergies Allergy Verified 05/07/24 07:18 Vital Signs Vital Signs - 24 hr 05/07/24 07:10 Temperature 97.3 F L Pulse Rate 69 Respiratory Rate 18 Blood Pressure 147/84 H Pulse Oximetry 100 Oxygen Delivery Room Air Exam Const: General: comfortable and no acute distress HENMT: Face/Nose/Sinus: Normal nares present Eyes: General: appearance normal, both eyes and all related structures Neck: Neck: no JVD Resp: Auscultation: clear to auscultation bilaterally Cardio: Rate: regular rate Rhythm: regular rhythm GI: Inspection: non-distended GI Palp: Yes Soft to palpation Skin: General skin exam: normal color Neuro: General: gait normal Speech: normal speech Extrem: General: normal to inspection Psych: Mental Status: mental status grossly normal Assessment and Plan Assessment and plan (1) Colon cancer screening: Code(s): Z12.11 - Encounter for screening for malignant neoplasm of colon Status: Acute Assessment and Plan: colonoscopy
[2024-05-07 08:20] VITALS: BP 120/78; PULSE 68; RESP 18; O2SAT 100
[2024-05-07 08:30] VITALS: BP 116/74; PULSE 63; RESP 20; O2SAT 100
[2024-05-07 08:40] VITALS: BP 122/73; PULSE 57; RESP 16; O2SAT 100
== END 2024-05-07 08:47 | disposition home or self-care (01) ==
PROVIDERS: PCP Nurse Practitioner Family; Visit Provider Internal Medicine Gastroenterology
PROC: 0DJD8ZZ Inspection of Lower Intestinal Tract, Via Natural or Artificial Opening Endoscopic (ICD-10-PCS; CPT 45378; principal; 2024-05-07 08:30)
DX: Z12.11 Encounter for screening for malignant neoplasm of colon (principal); K57.30 Diverticulosis of large intestine without perforation or abscess without bleeding; K64.8 Other hemorrhoids
CPT/HCPCS: 45378; J2704; J7120

== ENCOUNTER 2024-05-25 16:15 | Emergency (ER) | payer BC, SELFPAY ==
--- NOTE | ~2024-05-25 | CT_ITS ---
EXAMINATION: CT abdomen pelvis wo con DATE: 05/25/2024 17:34 INDICATION: Bilateral costovertebral angle pain. TECHNIQUE: Computed tomography (CT) of the abdomen and pelvis was performed without intravenous contr ast. Automated exposure control and iterative reconstruction technique were employed. The dose-length product was 492.55 mGy-cm. COMPARISON: None. FINDINGS: The visualized portions of the lung bases are clear without pneumonia or pleural effusion. The heart size is normal. No pericardial effusion. There is diffuse hepatic steatosis. The gallbladde r, spleen, pancreas, adrenal glands, and kidneys are normal. There is no urolithiasis. There are no d ilated loops of bowel. The appendix is normal. There are no pathologically enlarged lymph nodes. Ther e is no free intraperitoneal fluid. There is moderate thoracic and lumbar spondylosis. There is a hem angioma in T9 vertebral body. IMPRESSION: 1. No urolithiasis. 2. Diffuse hepatic steatosis. Reviewed, dictated and finalized at location A. /PARAMEDIC
[2024-05-25 16:17] VITALS: BP 146/101; PULSE 60; RESP 18; TEMP 36.5; O2SAT 100
[2024-05-25 16:54] VITALS: BP 125/80; PULSE 66; RESP 18; O2SAT 100
--- NOTE | 2024-05-25 17:16 | ED_ITS ---
HPI - Abdominal Pain General Chief Complaint: Back Pain/Injury Stated Complaint: b/l flank pain Time Seen by Provider: 05/25/24 17:09 History of Present Illness HPI narrative: 8-year-old male with reported history of kidney stones presents to emergency department for concerns for kidney stones. Patient reports bilateral lower back pain for the past 3 weeks. Describes the pain as a constant sharp pain that is worse with movement and better at rest. He states the pain radiates to bilateral lower quadrants of his abdomen. He denies dysuria or hematuria but does state yesterday and today he felt as though his stream was weaker than normal. He denies difficulty with initiating his stream and states he believes he has full into the bladder. He denies fever, nausea or vomiting. States it has been several years since he had a kidney stone and he has not established with Urology. Denies injury or trauma to his back, saddle anesthesia, bowel or bladder incontinence or urinary retention. Related Data Home Medications ?Medication ?Instructions ?Recorded ?Confirmed ?Last Taken ?Type gemfibrozil 600 mg tablet 600 mg PO DAILY 04/21/24 05/07/24 05/06/24 History temazepam 30 mg capsule 30 mg PO .qnight 04/21/24 05/07/24 05/06/24 History tirzepatide (weight loss) 2.5 2.5 mg subcut WEEKLY weight loss 04/21/24 05/07/24 04/23/24 History mg/0.5 mL subcutaneous pen injector (Zepbound) Allergies Allergy/AdvReac Type Severity Reaction Status Date / Time No Known Allergies Allergy Verified 05/25/24 16:19 Review of Systems 2 Review of Systems: All systems reviewed & are unremarkable except as noted in HPI and below PMFSH Past Medical History Medical History Colon cancer screening EVER on CPAP Obesity Social History Social History Living arrangements: with family Spiritual care concerns: No Exam 2 Narrative: GENERAL: Well-appearing, well-nourished, and in no acute distress. HEAD: Normocephalic, atraumatic. EYES: EOMI. ENT: Nares clear, no rhinorrhea or epistaxis. Mucous membranes moist. NECK: Supple. BACK: No midline thoracolumbar spinous tenderness, crepitus, step-offs or deformities. Tenderness to the lumbar paraspinous muscles and CVA region on palpation bilaterally, no overlying skin changes CHEST: Clear to auscultation. No respiratory distress. HEART: Regular rate and rhythm. No murmur heard. Normal peripheral pulses. ABDOMEN: Soft, nontender, nondistended, normal active bowel sounds. No rebound, guarding or rigidity. See back exam EXTREMITIES: Normal range of motion. No edema. No saddle anesthesia, strength 5/5 in BLE SKIN: Warm, dry, no rash. NEURO: No focal deficits. Alert and oriented x3 Course Vital Signs Vital signs: Vital Signs Temperature 97.7 F 05/25/24 16:17 Pulse Rate 60 05/25/24 16:17 Respiratory Rate 18 05/25/24 16:17 Blood Pressure 146/101 H 05/25/24 16:17 Pulse Oximetry 100 05/25/24 16:17 Oxygen Delivery Room Air 05/25/24 16:17 Temperature 97.7 F 05/25/24 16:17 Pulse Rate 62 05/25/24 18:43 Respiratory Rate 18 05/25/24 18:43 Blood Pressure 114/87 05/25/24 18:43 Pulse Oximetry 100 05/25/24 18:43 Oxygen Delivery Room Air 05/25/24 16:17 MDM - Abdominal Pain MDM Narrative Medical decision making narrative: 48-year-old male with history of kidney stones presents emergency department with concerns for kidney stones. He is reporting bilateral lower back pain for the past 3 weeks that radiates to his bilateral lower quadrants of his abdomen. Pain better at rest, worse with movement. Also reporting a weekend urine stream for the past 2 days. Vitals are stable. Patient is afebrile and nontoxic appearing. Exam is significant for the above. CT abdomen pelvis without contrast obtained to rule out uretal stones which shows no ureterolithiasis, incidentally findings show diffuse hepatic steatosis. CBC shows no leukocytosis or anemia. Chemistries are largely unremarkable other than ALT of 55, lipase also mildly elevated at 362. Patient has no epigastric or right upper quadrant tenderness on exam. No prior labs for comparison. UA is unremarkable. Postvoid bladder scan is within normal limits. Patient updated on results. Was given Flexeril and Toradol. Suspect MSK source of pain. Ibuprofen and Flexeril sent to pharmacy. Advised follow-up with PCP discussed return precautions. Will also provide follow-up with urology given reported week strain. He is agreeable to plan verbalized understanding. Discharged in stable condition. Lab Data 05/25/24 17:40 05/25/24 17:40 Labs: Lab Results 05/25/24 Range/Units 17:40 WBC 6.5 (4.5-10.0) K/mm3 RBC 5.24 (4.6-6.20) M/mm3 Hgb 15.2 (14.0-18.0) g/dL Hct 45.6 (42.0-52.0) % MCV 87.0 (80-100) fl MCH 29.0 (26-34) pg MCHC 33.3 (32-36) g/dl RDW 12.3 (11.5-14.5) % Plt Count 197 (150-375) k/mm3 MPV 9.7 (7.4-10.4) fl Immature Gran % (Auto) 0.2 (0-0.5) % Neut % (Auto) 50.2 (45.5-73.1) % Lymph % (Auto) 39.4 (18.3-44.2) % [place] % (Auto) 8.6 H (2.6-8.5) % Eos % (Auto) 1.1 (0-4.4) % Baso % (Auto) 0.5 (0.2-1.2) % Lymph # (Auto) 2.57 (0.9-3.2) K/mm3 [place] # (Auto) 0.6 (0.1-0.6) K/mm3 Eos # (Auto) 0.1 (0-0.3) K/mm3 Baso # (Auto) 0.0 (0.0-0.1) K/mm3 Abs Immat Gran (auto) 0.01 (0.00-0.031) K/mm3 Absolute Neuts (auto) 3.3 (1.3-6.7) K/mm3 Absolute Nucleated RBC 0.000 (0.0-0.012) K/mm3 Nucleated RBC % 0.0 (0.0-0.2) % Sodium 140 (137-145) mmol/L Potassium 4.1 (3.4-5.0) mmol/L Chloride 102 (98-107) mmol/L Carbon Dioxide 25 (22-30) mmol/L Anion Gap 13 H (4-12) mmol/L BUN 26 H (9-20) mg/dL Creatinine 0.91 (0.7-1.3) mg/dL Estim Creat Clear Calc 113 ml/min Estimated GFR > 60 (59 - ) Glucose 82 (65-110) mg/dL Calcium 9.8 (8.4-10.2) mg/dL Total Bilirubin 0.5 (0.2-1.3) mg/dL AST 41 (17-59) U/L ALT 55 H (6-50) U/L Alkaline Phosphatase 63 (38-126) U/L Total Protein 8.0 (6.3-8.2) g/dL Albumin 4.7 (3.5-5.1) g/dL Lipase 362 H (23-300) U/L Urine Color Yellow (Yellow) Urine Appearance Cloudy H (Clear) Urine pH 5.0 (5.0-9.0) Ur Specific [place] 1.022 (1.001-1.035) Urine Protein Negative (Negative) mg/dL Urine Glucose (UA) Negative (Negative) mg/dL Urine Ketones Negative (Negative) mg/dL Ur Blood (Man) Negative (Negative) Urine Nitrate Negative (Negative) Urine Bilirubin Negative (Negative) Urine Urobilinogen 0.2 (<2.0) mg/dL Leukocyte Esterase Rfl Negative (Negative) MIGUELITO/UL Urine RBC 0-2 (0-2) /hpf Urine WBC 0-5 (0-3) /hpf Ur Squamous Epith Cells None seen (Few) /hpf Urine Bacteria None seen /hpf Urine Casts 0-2 Imaging Data Radiologist's impression: ITS Impressions Abdomen/Pelvis CT 05/25/24 17:37 IMPRESSION: 1. No urolithiasis. 2. Diffuse hepatic steatosis. Discharge Plan Discharge Clinical Impression: Lower back pain, Hepatic steatosis Patient Disposition: Home, Self-Care Condition: Stable Instructions: Antibiotic Form, Acute Low Back Pain (ED), Lower Back Exercises (ED) Additional Instructions: You were evaluated in the emergency department for low back pain. The CT scan shows no kidney stones. Incidentally or found have evidence concerning for fatty liver disease. Please follow-up your primary care provider regarding this. Her back pain is likely secondary to muscular source. Please take medications as directed, stricture back in follow-up with your PCP. I have also provided follow-up with urology given her reported weak and urinary stream. Please call to schedule an appointment. Return to the emergency department if you develop fever, inability to urinate, significantly worsening pain or other concerning symptoms. Patient Language: Taiwanese Prescriptions: New cyclobenzaprine 10 mg tablet 10 mg PO TID PRN (Reason: muscle spasm) Qty: 14 0RF ibuprofen 800 mg tablet 800 mg PO TID PRN (Reason: pain) Qty: 20 0RF No Action temazepam 30 mg capsule 30 mg PO .qnight Zepbound 2.5 mg/0.5 mL pen injector 2.5 mg subcut WEEKLY Rx Instructions: for 4 weeks gemfibrozil 600 mg tablet 600 mg PO DAILY Patient Comments: has not started yet Follow-up/Referrals: Gal Lund MD [Physician] - Flor,Estephania Leija APRN [Primary Care Provider] -
[2024-05-25 17:46] LABS: Basophils Percent Auto 0.5 % (0.2-1.2); Eosinophils Absolute Auto 0.1 K/mm3 (0-0.3); Eosinophils Percent Auto 1.1 % (0-4.4); Hematocrit 45.6 % (42.0-52.0); Hemoglobin 15.2 g/dL (14.0-18.0); Immature Granulocyte Absolute 0.01 K/mm3 (0.00-0.031); Immature Granulocyte Percent A 0.2 % (0-0.5); Lymphocytes Absolute Auto 2.57 K/mm3 (0.9-3.2); Lymphocytes Percent Auto 39.4 % (18.3-44.2); Mean Corpuscular HGB Conc 33.3 g/dl (32-36); Mean Platelet Volume 9.7 fl (7.4-10.4); Monocytes Absolute Auto 0.6 K/mm3 (0.1-0.6); Monocytes Percent Auto 8.6 % (2.6-8.5); Neutrophils Absolute Auto 3.3 K/mm3 (1.3-6.7); Neutrophils Percent Auto 50.2 % (45.5-73.1); Platelet Count Result 197 k/mm3 (150-375); Red Blood Count 5.24 M/mm3 (4.6-6.20); Red Cell Distribution Width 12.3 % (11.5-14.5); White Blood Count 6.5 K/mm3 (4.5-10.0)
[2024-05-25] MEDS: CYCLOBENZAPRINE HCL 10 MG TABLET PO (17:46)
[2024-05-25] MEDS: KETOROLAC 30 MG/ML VIAL (*BKC) IV PUSH (17:47)
[2024-05-25 17:55] LABS: Add Urine Microscopic? YES; Appearance Urine Cloudy (Clear); Bacteria Urine None Seen /hpf; Bilirubin Urine Negative (Negative); Blood Urine Negative (Negative); Color Urine Yellow (Yellow); Glucose Urine UA Negative (Negative); Ketones Urine Negative (Negative); Leukocyte Esterase Ur Negative LEU/UL (Negative); Nitrate Urine Negative (Negative); Non Pathogenic Casts 0-2; Protein Urine Negative (Negative); RBC Urine 0-2 /hpf (0-2); Specific Grav Ur 1.022 (1.001-1.035); Squamous Epithelial Cell Urine None Seen /hpf (Few); Urobilinogen Urine 0.2 mg/dL (<2.0); WBC Urine 0-5 /hpf (0-3)
[2024-05-25 17:59] LABS: Alanine Aminotransferase 55 U/L (6-50); Albumin Level 4.7 g/dL (3.5-5.1); Alkaline Phosphatase 63 U/L (38-126); Anion Gap 13 mmol/L (4-12); Aspartate Amino Transferase 41 U/L (17-59); Bilirubin,Total 0.5 mg/dL (0.2-1.3); Blood Urea Nitrogen 26 mg/dL (9-20); Calcium 9.8 mg/dL (8.4-10.2); Carbon Dioxide 25 mmol/L (22-30); Chloride 102 mmol/L (98-107); Estimated CRCL calculation 113 ml/min; Estimated Glomerular Filt Rate > 60; Glucose 82 mg/dL (65-110); Lipase 362 U/L (23-300); Potassium 4.1 mmol/L (3.4-5.0); Sodium 140 mmol/L (137-145)
--- OUTSIDE RECORDS SUMMARY | 2024-05-25 18:15 | XMS_ITS | Continuity of Care Document ---
Author Organization [place] - [facility], [facility] [place] Address [address] [address] Care Team Providers Care Outreach Nurse Name Role Phone DENNIS DEVI Primary Care Provider Assessment Encounter Date Assessment Date Assessment LastModified by Organization Details LastModified Time 05/25/2024 05/25/2024 Time spent with patient included: preparing to see patient by reviewing tests, obtaining and reviewing history, medical examination and evaluation, counseling and educating the patient, ordering medications and tests, documenting clinical information in EHR, independently interpreting results and communicating results to the patient for a total of 25 minutes. [email or web address] Not available 05/25/2024 16:53:49 Plan of Treatment Reminders Order Date Submit Date Provider Last Modified By Organization Details Last Modified Time Details Appointments Any 15 025 03:30PM Selma Ramsay NP Not available Not available Not available Any 15 025 03:30PM Dennis Devi APRN Not available Not available Not available Lab None record ed. Referral None record ed. Procedures None record ed. Surgeries None record ed. Imaging None record ed. Medication Orders None record ed. Patient TargetsNo targets recorded. Patient InstructionsNo instructions recorded. Reason for Referral None Reported. Results Created Date Observation Date Name Description Value Unit Range Abnormal Flag Note LastModifiedBy Organization Detail LastModifiedTime 05/26/1904/16/2019 polys omnog kennedy, titra tion study No observ ation record ed. BARCODE Not Available 2024 08:20:28 05/26/1902/01/2019 home sleep study No observ ation record ed. BARCODE Not Available 2024 08:20:28 05/26/19 25 05/25/2024 imagi ng/di agnos tic resul t No observ ation record ed. [facility] [place] [address], [place], [address], 05/25/2024 18:44:50 Result Notes None recorded. 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 Dennis Devi APRN [address], [address], [place], [address] , [facility] 5 15:54:28 Equinus contracture of the ankle 029765551 Active 2019 Not Available [facility] 3 08:46:40 Equinus contracture of the ankle 187854406 Active 2019 Dennis Devi APRN [address], [address], [place], [address] , [facility] 5 15:54:31 Abdominal pain 74597980 Active Not Available [facility] 3 08:46:40 Situational panic attack 409024433 Active Dennis Devi APRN [address], [address], [place], [address] , [facility] 5 15:55:03 Chest pain 65944147 Active Not Available [facility] 3 08:46:40 Tinnitus 96860649 Active Not Available [facility] 3 08:46:40 Obstructive sleep apnea syndrome 26547466 Active 2018 Dennis Devi APRN [address], [address], [place], [address] , [facility] 5 15:54:43 Neck pain 28411026 Active Not Available [facility] 3 08:46:41 Skin lesion 02569302 Active Not Available [facility] 3 08:46:41 Insomnia 152852394 Active 2022 Dennis Devi APRN [address], [address], [place], [address] , [facility] 5 15:54:37 Acute sinusitis 85342464 Active 2022 Anna Clayton MD [address], [address], [place], [address] , [facility] 3 15:45:55 Left flank pain 300115576 Active 2022 ESHA Castro [address], [place] [address], [place], [address] , [facility] 3 16:15:08 Painless rectal bleeding 552180852 Active 2022 Anna Clayton MD [address], [address], [place], [address] , [facility] 3 12:58:43 Hyperlipidemi a 38039935 Active 2023 Dennis Devi APRN [address], [address], [place], [address] , [facility] 5 15:54:33 Obesity 354941443 Active 2024 Dennis Devi APRN [address], [place] [address], [place], [address] , [facility] 5 11:32:35 Sleep apnea 16487997 Active 2024 Selma Ramsay NP [address], [address], [place], [address] , [facility] 5 16:44:04 Problem Notes None recorded. Medical Equipment None [...] MOUTH TWICE A DAY FOR TWO WEEKS 05/25 completed Not Available Not Available Not Available Ambien 10 mg tablet Take 1 [...] Not Available Not Available Not Available Zepbound 5 mg/0.5 mL subcutane ous pen injector INJECT 0.5 ML SUBCUTAN EOUSLY ONE TIME PER WEEK DIRECTED active Not Available Not Available No t Available Zepbound 2.5 mg/0.5 mL subcutane ous pen injector INJECT 0.5 ML SUBCUTAN EOUSLY EVERY WEEK DIRECTED FOR WEIGHT LOSS active Not Available Not Available No t Available Vitals Date Recorded Body height Body mass index (BMI) Body weight Body temperature Heart rate Oxygen saturation Oxygen saturation in Arterial blood by Pulse oximetry Systolic blood pressure Diastolic blood pressure Provider Name and Address Organization Details Last Updated DateTime 5 177.8 cm 35.9 kg/m2 252397. 09 g 98 [degF] 70 /min 97 % 97 % 112 mm[Hg] 76 mm[Hg] Ashleigh Plunkett MA [facility] 5 16:28:47 Social History Question Answer Notes LastModified by Organizat ion Details LastModified Time Tobacco Smoking Status Never Smoker Muna Mccloud RN null, [facility] 06/25/2022 16:08:31 What Is Your Level Of Alcohol Consumption? None Information not available 06/25/2022 What Is Your Level Of Caffeine Consumption? Occasional Information not available 04/06/2024 In The 14 Days Before Symptom Onset, Have You Had Close Contact With A Laboratory-confir med COVID-19 While That Case Was Ill? No [id number] Information not available 05/22/2022 In The 14 Days Before Symptom Onset, Have You Had Close Contact With A Person Who Is Under Investigation For COVID-19 While That Person Was Ill? No [id number] Information not available 05/22/2022 Are You Currently Employed? Yes Information not available 04/06/2024 What Type Of Diet Are You Following? REGULAR Information not available 06/25/2022 Do You Have An Electrostatic Air Filter? No Information not available 05/25/2024 Have There Been Any Changes To Your Family Or Social Situation? No Information no t available 04/06/2024 Do You Have A Humidifier? No Information not available 05/25/2024 Do You Use Insect Repellent Routinely? No Information not available 04/06/2024 Where Do You Live? SingleLevelHouse Information not available 04/06/2024 Do You Have Moisture Problems In Your Home? No Information not available 05/25/2024 What Was The Date Of Your Most Recent Tobacco Screening? 05/25/2024 Information not available 05/25/2024 How Many Children Do You Have? 3 [...] Anxious, Or Unable To Sleep At Night)? [id number] Information not available 04/06/2024 Do You Use Any Illicit Or Recreational Drugs? No Information not available 06/25/2022 Do You Use Sunscreen Routinely? No Information not available 04/06/2024 Have You Recently Traveled Abroad? No [id number] Information not available 05/22/2022 Do You Have [...] Time Father No current problems or disability [id number] Not available 05/22/2022 08:43:06 Mother No current problems or disability [id number] Not available 05/22/2022 08:43:06 Medical History No medical history recorded. Past Encounters Encounter ID Performer Location Encounter Start Date Encounter Closed Date Diagnosis/Indication Diagnosis SNOMED-CT Code Diagnosis ICD10 Code Diagnosis Note [id number] Selma Ramsay NP [facility] [address] [address] 05/25/2024 16:09:28 05/25/2024 16:58:46 Sleep apnea 00539714 G47.30 G47.33 Patient has Resmed since 2019Downlo ad shows 84% compliance with use of greater than 4 hoursPAP is set at 5 cm P1RZath/sl eep study while on PAP reviewedAH I was well corrected at 0.5ESS-10C ontinue 100% compliance with all sleepFollo w with Primary for labsDiscus sed sleep hygeineAdv ised good sleep habits and patterns:- Set a goal for at least 7 to 8 hours of sleep time per day-Use the bed mainly for sleep and to go to bed only when tired. If unable to fall asleep after 30 minutes, patient should get out of bed but should not engage in any activity that requires sustained mental alertness. -Maintain a regular bedtime and wake-up time even on weekends or day off of work.-Avoi d excessive naps during the daytime. If a nap is necessary, limit to no more than 30 minutes.-M inimize enviroment al noise, bright lights, and extremitie s in bedroom temperatur es.-Avoid alcohol, caffeinate d beverages, and nicotine products for at least 6 hours prior to bedtime.-A void strenuous exercise and large meals for at least 4 hours prior to bedtime.-D iscussed reportable signs and symptoms of concernRec ollie edgar at 6 year lakshmi, plans to repeat home sleep study as needed with changes in condition. F/u 1 month Health Concerns Section Related Observation LastModified by Organization Detai ls LastModified Time None Recorded Concern Status LastModified by Organization Details LastModified Time None Recorded Payers Encounter Date Sequence Insurance Name Policy Number Policy Daniel Covered Member ID Daniel Member ID Guarantor Name 05/25/2024 1 [facility]: (PPO) [id number] Jared Osullivan [id number] Jared Osullivan Notes Date Note Type Note Provider Name and Address Organization Details Recorded Time 05/25/2024 text/html CPAP F/UReported bypatient.CPAPPat ient is using CPAP and estimates 7 hours of PAP use nightly.; No problems with CPAP; mask does not leak; no trouble with sleep initiation; no problems with sleep maintenance; does not remove CPAP mask during the night; does not wake up in the middle of the night with dry mouth; no snoring through the mask; no aerophagia; no abdominal discomfort; no skin irritation; no ear pain; no ear pressure; no nasal congestion; sleep related symptoms have ; wakes up rested; no excessive daytime sleepiness; no headache; no memory loss; weight is stableNotes:melissa linares is 6 yrs old-making noisesdoes do shift work Selma Ramsay, ERIN [address] [facility], [address], [place], [address], [facility] 05/25/2024 16:58:45
--- OUTSIDE RECORDS SUMMARY | 2024-05-25 18:15 | XMS_ITS | Continuity of Care Document ---
Author Organization [facility] Address [address] [place] [address] [address] [place] [address] Phone Care Team Providers Care Nurse Practitioner Manager Name Role Phone Bridget Oscar Unavailable Unavailable Advance Directives Directive Yes / No Effective Date File Name No Information Encounters Encounter Description Practice Location Reason(s) For Visit Diagnoses Date Provider Providers Copied on Encounter [facility], [address] [place] [address] [address], [place], [place], [id number], [place] tel:[phone] [facility] No Information [address] [facility] , [address], [place], [address], [place]. tel:[phone] Family History Family Member Type Diagnosis Age At Onset No Information Payers Payer name Insurance type Covered republican ID Authoriza tion(s) No Information Social History [...]
--- OUTSIDE RECORDS SUMMARY | 2024-05-25 18:15 | XMS_ITS | CONTINUITY OF CARE DOCUMENT ---
Author Name javad farnsworth Address Unknown Organization [facility] Address [address] [place] [address] [address] [place] [address] Phone [phone] Care Team Providers Care Ironing Machine Operator Name Role Phone Justice SALMON, Polly Unavailable RYAN HARDIN MD Unavailable [phone] LOLIS LOWE MD Unavailable INSURANCE PROVIDERS Payer name Policy type / Coverage type [place] [employer] green party ID [facility] [id number] Other [id number]
--- OUTSIDE RECORDS SUMMARY | 2024-05-25 18:15 | XMS_ITS | Clinical Summary ---
Author Organization [facility] Address [facility] [place] [address] Care Team Providers Care Ocular Pathologist Name Role Phone Unavailable Primary Care Provider [...]
--- OUTSIDE RECORDS SUMMARY | 2024-05-25 18:16 | XMS_ITS | Data Portability ---
Author Organization MD - [facility], Main Office Address [address] [place] [address] Care Team Providers Care Carpet Jack Name Role Phone ESTEPHANIA DEVI Primary Care Provider Assessment Encounter Date [...] Last Modified Time Details Appointments Any 15 2024 03:30P M Selma Ramsay NP Not available Not available Not available Any 15 2024 03:30P M Estephania Devi APRN Not available Not available Not available Lab hepatitis C virus Ab, serum 2024 025 [facility] (Lab), [address] [place], [address], 04/16/2024 08:08:18 lipid panel, serum 2024 025 [facility] (Lab), [address] [place], [address], 04/16/2024 08:08:17 TSH, serum or plasma 2024 025 [facility] (Lab), [address] [place], [address], 04/16/2024 08:08:17 CBC w/ auto diff 2024 025 [facility] (Lab), [address] [place], [address], 04/16/2024 08:08:17 CMP, serum or plasma 2024 025 [facility] (Lab), [address] [place], [address], 04/16/2024 08:08:18 glycohemo globin, total, blood 2024 025 [facility] (Lab), [address] [place], [address], 04/16/2024 08:08:18 PSA, total, serum or plasma 2023 024 [email or web address] 77 Not available 07/29/2023 08:18:24 BMP, serum or plasma 2023 024 [email or web address] 77 Not available 07/29/2023 08:18:24 hepatic function panel, serum 2023 024 [email or web address] 77 Not available 07/29/2023 08:18:24 lipid panel, serum 2023 024 [email or web address] 77 Not available 07/29/2023 08:18:24 urinalysi s, dipstick 2022 023 [facility] [address], [place], [address], 06/25/2022 16:50:09 urinalysi s, complete 2022 023 [email or web address] [facility] (Lab), [address] [place], [address], 07/11/2022 08:38:31 drug screen, urine 2022 023 [email or web address] [facility], [address], [place], [address], 06/25/2022 16:48:00 Referral pulmonolo gist referral 2024 025 [email or web address] Selma Ramsay TAX ASSISTANT-C, [address] [facility], [address], [place], [address], 04/07/2024 12:43:20 gastroent erologist referral - Please call patient to schedule an appointme nt. Thank you. [address] [facility], [address], [address], [place], [address], 07/21/2023 08:55:43 Procedures None recorded. Surgeries None recorded. Imaging None recorded. Medication Orders temazepam 30 mg capsule 2024 025 [facility] #[id number], [address], [place], [address], 04/06/2024 16:37:58 temazepam 30 mg capsule 2023 024 [facility]acy #[id number], [address], [place], [address], 06/17/2023 16:58:43 temazepam 30 mg capsule 2022 023 [facility]/Pharmacy #[id number], [address], [place], [address], 06/25/2022 16:26:27 tamsulosi n 0.4 mg capsule 2022 023 [id number], [address], [place], [address], 06/17/2023 16:40:36 ciproflox acin 500 mg tablet 2022 023 [email or web address] [id number], [address], [place], [address], 06/17/2023 16:40:17 Patient TargetsNo targets recorded. Patient Instructions Encounter Date Encounter Id Patient Instructions Last Modified By Organization Details Last Modified Time 04/06/2024 [id number] Follow up in 6 months Prescription sent to pharmacy Obtain labs Tests: Referral: Selma Ramsay-Pulmonary MEDICAL RADIATION DOSIMETRIST Recommend: Tetanus vaccine [email or web address] Not available 04/06/2024 16:35:24 Reason for Referral Carton Stamper Referral for Screening for malignant neoplasm of colon Please call patient to schedule an appointment. Thank you. Referring Physician: Anna Clayton, Family Medicine, Encounter Date: 06/17/2023 Event Management Consultant Referral for O bstructive sleep apnea syndrome Referring Physician: Estephania Devi, Internal Medicine, Encounter Date: 04/06/2024 Results Created Date Observation Date Name Description Value Unit Range Abnormal Flag Note LastModifiedBy Organization Detail LastModifiedTime 06/26/1906/25/2022 URINA LYSIS COMPL ETE, IRIS color LIGHT- YELLOW Not Available [facility] (Lab) [address] [place], [address], 06/25/2022 21:05:10 06/26/19 23 06/25/2022 URINA LYSIS COMPL ETE, IRIS appear CLEAR Not Available [facility] (Lab) [address] [place], [address], 06/25/2022 21:05:10 06/26/19 23 06/25/2022 URINA LYSIS COMPL ETE, IRIS specific gravity 1.030 1.001- 1.030 Not Available [facility] (Lab) [address] [place], [address], 06/25/2022 21:05:10 06/26/19 23 06/25/2022 URINA LYSIS COMPL ETE, IRIS pH 6.0 pH_un its 5.0-9. 0 Not Available [facility] (Lab) [address] [place], [address], 06/25/2022 21:05:10 06/26/19 23 06/25/2022 URINA LYSIS COMPL ETE, IRIS leukocytes NEGATI VE jessica/u L negati ve- Not Available [facility] (Lab) [address] [place], [address], 06/25/2022 21:05:10 06/26/19 23 06/25/2022 URINA LYSIS COMPL ETE, IRIS nitrite NEGATI VE negati ve- Not Available [facility] (Lab) [address] [facility] [place], [address], 06/25/2022 21:05:10 06/26/19 23 06/25/2022 URINA LYSIS COMPL ETE, IRIS protein NEGATI VE mg/dL negati ve- Not Available [facility] (Lab) [address] [place], [address], 06/25/2022 21:05:10 06/26/19 23 06/25/2022 URINA LYSIS COMPL ETE, IRIS glucose NORMAL mg/dL normal - Not Available [facility] (Lab) [address] [place], [address], 06/25/2022 21:05:10 06/26/19 23 06/25/2022 URINA LYSIS COMPL ETE, IRIS ketones NEGATI VE mg/dL negati ve- Not Available [facility] (Lab) [address] [place], [address], 06/25/2022 21:05:10 06/26/19 23 06/25/2022 URINA LYSIS COMPL ETE, IRIS urobilinogen NORMAL mg/dL normal - Not Available [facility] (Lab) [address] [place], [address], 06/25/2022 21:05:10 06/26/19 23 06/25/2022 URINA LYSIS COMPL ETE, IRIS bilirubin NEGATI VE mg/dL negati ve- Not Available [facility] (Lab) [address] [place], [address], 06/25/2022 21:05:10 06/26/19 23 06/25/2022 URINA LYSIS COMPL ETE, IRIS blood NEGATI VE mg/dL negati ve- Not Available [facility] (Lab) [address] [place], [address], 06/25/2022 21:05:10 06/26/19 23 06/25/2022 URINA LYSIS COMPL ETE, IRIS white blood cells 0-8 /i??h pfi?? 0-8 Not Available [facility] (Lab) [address] [place], [address], 06/25/2022 21:05:10 06/26/19 23 06/25/2022 URINA LYSIS COMPL ETE, IRIS red blood cells 0-4 /i??h pfi?? 0-4 Not Available [facility] (Lab) [address] [facility] [place], [address], 06/25/2022 21:05:10 06/26/19 23 06/25/2022 URINA LYSIS COMPL ETE, IRIS bacteria OCCASI ONAL abnormal Not Available [facility] (Lab) [address] [place], [address], 06/25/2022 21:05:10 06/26/19 23 06/25/2022 URINA LYSIS COMPL ETE, IRIS mucous OCCASI ONAL /i??l pfi?? abnormal Not Available [facility] (Lab) [address] [place], [address], 06/25/2022 21:05:10 06/26/19 23 06/25/2022 URINA LYSIS COMPL ETE, IRIS squamous epithelial NONE /i??l pfi?? abnormal Not Available [facility] (Lab) [address] [place], [address], 06/25/2022 21:05:10 06/26/19 23 06/25/2022 urina lysis , dipst ick Leukocytes (reference range: negative jessica/ l) Negati ve Not Available [address], [place], [address], 06/25/2022 16:16:43 06/26/19 23 06/25/2022 urina lysis , dipst ick Nitrite (reference rage: negative mg/dl) negati ve Not Available [address], [place], [address], 06/25/2022 16:16:43 06/26/19 23 06/25/2022 urina lysis , dipst ick Urobilinogen (reference range: 0.2-1 mg/dl) 0.2 Not Available [address], [place], [address], 06/25/2022 16:16:43 06/26/19 23 06/25/2022 urina lysis , dipst ick Protein (reference range: negative mg/dl) Negati ve Not Available [address], [place], [address], 06/25/2022 16:16:43 06/26/19 23 06/25/2022 urina lysis , dipst ick pH (reference range: 5-7) 6.0 Not Available [address], [place], [address], 06/25/2022 16:16:43 06/26/19 23 06/25/2022 urina lysis , dipst ick Blood (reference range: negative Ryan/ l) Negati ve Not Available [address], [place], [address], 06/25/2022 16:16:43 06/26/19 23 06/25/2022 urina lysis , dipst ick Specific [place] (reference range: 1.005-1.030) 1.030 Not Available [address], [place], [address], 06/25/2022 16:16:43 06/26/19 23 06/25/2022 urina lysis , dipst ick Ketone (reference range: negative mg/dl) Negati ve Not Available [address], [place], [address], 06/25/2022 16:16:43 06/26/19 23 06/25/2022 urina lysis , dipst ick Bilirubin (reference range: negative mg/dl) Negati ve Not Available [address], [place], [address], 06/25/2022 16:16:43 06/26/19 23 06/25/2022 urina lysis , dipst ick Glucose (reference range: negative mg/dl) Negati ve Not Available [address], [place], [address], 06/25/2022 16:16:43 06/26/19 23 06/25/2022 urina lysis , dipst ick Appearance Clear Not Available [address], [place], [address], 06/25/2022 16:16:43 06/26/19 23 06/25/2022 urina lysis , dipst ick Color Yellow Not Available [address], [place], [address], 06/25/2022 16:16:43 03/0404/16/2019 polys omnog kennedy, titra tion study No observ ation record ed. BARCODE Not Available 2024 08:20:28 05/26/1902/01/2019 home sleep study No observ ation record ed. BARCODE Not Available 2024 08:20:28 05/26/1905/25/2024 imagi ng/di agnos tic resul t No observ ation record ed. [address], [place], [address], 05/25/2024 18:44:50 Result Notes None recorded. 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 Estephania Devi APRN [address], [facility] [address], [place], [address] , [facility] 5 15:54:28 Equinus contracture of the ankle 848322394 Active 2019 Not Available [facility] 3 08:46:40 Equinus contracture of the ankle 284644345 Active 2019 Estephania Devi APRN [address], [address], [place], [address] , [employer] 5 15:54:31 Abdominal pain 86914833 Active Not Available [facility] 3 08:46:40 Situational panic attack 631002835 Active Estephania Devi APRN [address], [address], [place], [address] , [facility] 5 15:55:03 Chest pain 23707448 Active Not Available [facility] 3 08:46:40 Tinnitus 51403286 Active Not Available [facility] 3 08:46:40 Obstructive sleep apnea syndrome 24379654 Active 2018 Estephania Devi APRN [address], [address], [place], [address] , [employer] [place] [facility] [facility] 5 15:54:43 Neck pain 27035129 Active Not Available [facility] 3 08:46:41 Skin lesion 93546826 Active Not Available [facility] 3 08:46:41 Insomnia 569784412 Active 2022 Estephania Devi APRN [address], [address], [place], [address] , [employer] [place] [facility] [employer] [facility] 5 15:54:37 Acute sinusitis 03361647 Active 2022 Anna Clayton MD [address], [address], [place], [address] , [place] [facility] [employer] [facility] 3 15:45:55 Left flank pain 363758743 Active 2022 ESHA Castro [address], [address], [place], [address] , [employer] [place] [facility] [employer] [facility] 3 16:15:08 Painless rectal bleeding 836792250 Active 2022 Anna Clayton MD [address], [address], [place], [address] , [employer] [place] [facility] [employer] [facility] 3 12:58:43 Hyperlipidemi a 92822809 Active 2023 Estephania Devi APRN [address], [address], [place], [address] , [employer] [place] [facility] 5 15:54:33 Obesity 009734116 Active 2024 Estephania Devi APRN [address], [address], [place], [address] , [employer] [place] [facility] 5 11:32:35 Sleep apnea 85886772 Active 2024 Selma Ramsay NP [address], [address], [place], [address] , [place] [facility] 16:44:04 Problem Notes None recorded. Procedures Surgical History None recorded. Imaging Results Imaging Date Name Status LastModified by Organiz ation Details LastModified Time 04/16/2019 polysomnogram, titration study completed BAR[facility] Information not available 05/25/2024 08:20:28 02/01/2019 home sleep study completed BAR[facility] Information not available 05/25/2024 08:20:28 05/25/2024 imaging/diagno stic result active [facility] [address], [place], [address], 05/25/2024 18:44:50 Procedure Notes None recorded. Medical Equipment None Reported. [...] Updated DateTime 3 177.8 cm 37.2 kg/m2 301227. 42 g 97.1 [degF] 63 /min 98 % 98 % 128 mm[Hg] 82 mm[Hg] Muna Mccloud RN [facility] [employer] 3 16:07:36 Date Recorded Body height Body mass index (BMI) Body weight Body temperature Heart rate Oxygen saturation Oxygen saturation in Arterial blood by Pulse oximetry Provider Name and Address Organization Details Last Updated DateTime 4 177.8 cm 36.7 kg/m2 947956. 65 g 97.5 [degF] 80 /min 97 % 97 % Uzair Whitmore RN [facility] [employer] 4 16:39:13 Date Recorded Systolic blood pressure Diastolic blood pressure Provider Name and Address Organization Details Last Updated DateTime 06/17/2023 138 mm[Hg] 88 mm[Hg] Anna Clayton MD [address] [place] [address], [address], [facility] 06/17/2023 16:56:20 Date Recorded Body height Body mass index (BMI) Body weight Body temperature Heart rate Oxygen saturation Oxygen saturation in Arterial blood by Pulse oximetry Pain severity - 0-10 verbal numeric rating [Score] - Reported Systolic blood pressure Diastolic blood pressure Provider Name and Address Organization Details Last Updated DateTime 5 177.8 cm 37.7 kg/m2 149563. 79 g 98.5 [degF] 81 /min 98 % 98 % 0 128 mm[Hg] 90 mm[Hg] Margaret Henry MA [facility] 5 16:06:19 Date Recorded Body height Body mass index (BMI) Body weight Body temperature Heart rate Oxygen saturation Oxygen saturation in Arterial blood by Pulse oximetry Systolic blood pressure Diastolic blood pressure Provider Name and Address Organization Details Last Updated DateTime 177.8 cm 35.9 kg/m2 490938. 09 g 98 [degF] 70 /min 97 % 97 % 112 mm[Hg] 76 mm[Hg] Ashleigh Plunkett MA MD [employer] [facility] 16:28:47 Social History Question Answer Notes LastModified by Organizat ion Details LastModified Time Tobacco Smoking Status Never Smoker Muna Mccloud RN null, MD [employer] [facility] 06/25/2022 16:08:31 What Is Your Level Of Alcohol Consumption? None Information not available 06/25/2022 What Is Your Level Of Caffeine Consumption? Occasional Information not available 04/06/2024 In The 14 Days Before Symptom Onset, Have You Had Close Contact With A Laboratory-confir med COVID-19 While That Case Was Ill? No [id number] Information not available 05/22/2022 In The 14 Days Before Symptom Onset, Have You Had Close Contact With A Person Who Is Under Investigation For COVID-19 While That Person Was Ill? No [id number] Information not available 05/22/2022 Are You Currently [...] Anxious, Or Unable To Sleep At Night)? [id number] Information not available 04/06/2024 Do You Use Any Illicit Or Recreational Drugs? No Information not available 06/25/2022 Do You Use Sunscreen Routinely? No Information not available 04/06/2024 Have You Recently Traveled Abroad? No [id number] Information not available 05/22/2022 Do You Have [...] Time Father No current problems or disability [id number] [id number] Not available 05/22/2022 08:43:06 Mother No current problems or disability [id number] [id number] Not available 05/22/2022 08:43:06 Medical History No medical history recorded. Past Encounters Encounter ID Performer Location Encounter Start Date Encounter Closed Date Diagnosis/Indication Diagnosis SNOMED-CT Code Diagnosis ICD10 Code Diagnosis Note [id number] [facility] General Surgery [address] [facility] [place] [address] 05/10/2021 00:00:00 05/10/2021 15:08:05 [id number] [facility] General Surgery [address] [place] [address] 06/14/2021 00:00:00 06/14/2021 13:49:26 [id number] [facility] Primary Care Brent savage [address] [facility] [address] [place] [address] 10/25/2021 00:00:00 10/25/2021 17:28:19 [id number] ESHA Castro [facility] Primary Care [place] [address] [facility] [address] [place] [address] 06/25/2022 16:01:12 06/25/2022 16:30:40 Left flank pain 574890038 R10.9 New problemSus pect L nephrolith iasis. Pt tolerating pain with ibuprofen. Will check UA and send for micro. Will start on flomax and abx in the meantime. Reviewed red flags and when to go to ER. Pt verbalized understand ing & agreement with POC. Medication monitoring 39 3057247 Z51.81 Stable with current dose of temazepamP t denies any lending, selling, or borrowing of medication s. Continue to use sparingly. Reviewed controlled substance agreement requiremen ts. Refill given.[place] PDMP checked todayUDS (10/25/21)-a ppropriate .Due for repeat UDS today Insomnia 532715011 G47.0 0 Chronic, stable with temazepam Sleep [...] hours prior to bedtime. Continue Temazepam 30mg QHS [id number] Anna Clayton MD [facility] Primary Care [address] [address] 06/17/2023 16:33:03 06/17/2023 16:58:02 Insomnia 272104070 G47.00 stablerefi ll givenf/u in 6 months or sooner if needed Hyperlipidemia 34324961 E78.5 Z79.899 Diabetes m ellitus screening 166259344 Z13.1 Screening for malignant neoplasm of prostate 369323258 Z12.5 Screening for malignant neoplasm of colon 559493856 Z12.11 [id number] SHERYL Ovalles [facility] Primary Care [address] [place] [address] 09/15/2023 16:13:31 09/15/2023 17:11:37 [id number] Estephania Devi APRN [facility] Internal Med [facility] [address] [address] 04/06/2024 15:43:31 04/06/2024 16:42:47 Hyperlipidemia 04290855 E78.5 Z79.899 Hepatitis C screening 41 9743828 Z11.59 Obstructiv e sleep apnea syndrome 17453995 G47.33 Insomnia 716214802 G47.0 0 [id number] Selma Ramsay NP [facility] Pulmonolo gy [address] [address] 05/25/2024 16:09:28 05/25/2024 16:58:46 Sleep apnea 49656842 G47.30 G47.33 Patient has Resmed since 2019Downlo ad shows 84% compliance with use of greater than 4 hoursPAP is set at 5 cm J2VQhah/sl eep study while on PAP reviewedAH I [...] ID Guarantor Name 06/25/2022 1 [place] [id number] Jared C Abran [id number] Jared C Abran 06/17/2023 1 [place] [id number] Jared C Abran [id number] Jared C Abran 09/15/2023 1 [place] [id number] Jared C Abran [id number] Jared C Abran 04/06/2024 1 [place] [id number] Jared C Abran [id number] Jared C Abran 05/25/2024 1 [place] [id number] Jared C Abran [id number] Jared C Abran Notes Date Note [...] urine at this time. ESHA Castro [address] [facility], [address], [place], [address], [facility] 06/25/2022 19:51:59 06/17/2023 text/html Here for medication f/u. He is taking temazepam at bedtime as prescribed, no selling/lending/s haring, no heavy etoh or illegal drug use. Anna Clayton MD [address], [address], [place], [address], [facility] 06/19/2023 22:31:45 04/06/2024 text/html Jared presents today to establish care. Estephania Devi APRN [address] 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, [facility] [address], [place], [address], [facility] [employer] 05/25/2024 16:58:45
--- OUTSIDE RECORDS SUMMARY | 2024-05-25 18:31 | XMS_ITS | Continuity of Care Document ---
Author Organization [facility] Address [address] [place] [address] [address] [place] [address] Phone Care Team Providers Care Pool Attendant Name Role Phone Bridget Oscar Unavailable Unavailable Advance Directives Directive Yes / No Effective Date File Name No Information Encounters Encounter Description Practice Location Reason(s) For Visit Diagnoses Date Provider Providers Copied on Encounter [facility], [id number] [place] [address] [address], [place], [place], [id number], [place] tel:[phone] [facility] No Information [address] [facility] , [address], [place], [address], [place]. tel:[phone] Family History Family Member Type Diagnosis Age At Onset No Information Payers Payer name Insurance type Covered green party ID Authoriza tion(s) No Information Social History [...]
--- OUTSIDE RECORDS SUMMARY | 2024-05-25 18:31 | XMS_ITS | CONTINUITY OF CARE DOCUMENT ---
Author Name javad farnsworth Address Unknown Organization [facility] Address [address] [place] [address] [address] [place] [address] Phone [phone] Care Team Providers Care Deboning Team Leader Name Role Phone Justice SALMON, Polly Unavailable [phone] RYAN HARDIN MD Unavailable LOLIS LOWE MD Unavailable [phone] INSURANCE PROVID[employer] Payer name Policy type / Coverage type [place] red libertarian ID [facility] [id number] Other [id number]
[2024-05-25 18:43] VITALS: BP 114/87; PULSE 62; RESP 18; O2SAT 100
== END 2024-05-25 18:44 | disposition home or self-care (01) ==
PROVIDERS: Emergency Provider Physician Assistant; PCP Nurse Practitioner Family
DX: M54.50 Low back pain, unspecified (principal); K76.0 Fatty (change of) liver, not elsewhere classified; G47.30 Sleep apnea, unspecified
CPT/HCPCS: 36415; 74176; 80053; 81001; 83690; 85025; 96374; 96375; 99284; A9270; J1885

== ENCOUNTER 2024-10-06 15:12 | Outpatient (CLI) | payer BC, SELFPAY ==
--- NOTE | ~2024-10-06 | US_ITS ---
US retroperitoneal comp 10/06/2024 15:31 Procedure: Realtime transabdominal ultrasound of the kidneys and bladder. Indication: Chronic kidney disease Comparison: CT dated 05/25/2024 Findings: Renal echotexture is normal bilaterally without hydronephrosis, contour deforming mass or r enal calculus. The right kidney measures 11.6 cm and left kidney measures 11.2 cm. Bladder within no rmal limits. Impression: 1: Unremarkable renal ultrasound. No stones, masses or hydronephrosis. Reviewed, dictated and finalized at location B. Impression: 1: Unremarkable renal ultrasound. No stones, masses or hydronephrosis.
== END 2024-10-06 15:13 | disposition home or self-care (01) ==
LOC: MICIMG 15:12
PROVIDERS: PCP Specialist; Visit Provider Specialist
DX: N18.2 Chronic kidney disease, stage 2 (mild) (principal)
CPT/HCPCS: 76770